=== PATIENT | male | born 1980 ===

== ENCOUNTER 2018-04-04 18:39 | Emergency (ER) | payer SELFPAY ==
[~2018-04-04] VITALS: Ht 182.9 cm; Wt 77.1 kg
--- NOTE | 2018-04-04 19:30 | NUR ---
Patient eloped from facility. ER physician notified.
== END 2018-04-04 19:31 | disposition left against medical advice (07) ==
LOC: ER 18:43
DX: R51 Headache (principal)
CPT/HCPCS: 99281; A4663